=== PATIENT | male | born 1960 | race Caucasian/White ===

== ENCOUNTER 2017-09-22 16:32 | Outpatient (RCR) | payer OTHER, SELFPAY ==
[2016-04-01 13:00] VITALS: BMI 50.8
[2017-09-22 17:30] LABS: International Normalized Ratio 2.5; Prothrombin Time (Protime)PT. 26.4 SECONDS (11.7-14.9)
[2017-09-22 18:39] LABS: Amphetamine Urine VISTA NEGATIVE (<1000 ng/mL); Barbiturate Urine VISTA NEGATIVE (< 200 ng/mL); Benzodiazepine Urine VISTA NEGATIVE (< 200 ng/mL); Cocaine Urine VISTA NEGATIVE (< 300 ng/mL); Ecstacy Urine VISTA NEGATIVE (< 500 ng/mL); Methadone Urine VISTA NEGATIVE (< 300 ng/mL); PCP Urine VISTA NEGATIVE (< 25 ng/mL); THC Urine VISTA NEGATIVE (< 50 ng/mL); Vista UDS pH Range 6
== END 2017-09-22 17:00 | disposition home or self-care (01) ==
LOC: MTLAB 16:32
PROVIDERS: Family Provider Family Medicine; PCP Family Medicine; Visit Provider Internal Medicine Cardiovascular Disease
DX: Z95.2 Presence of prosthetic heart valve (principal); F11.20 Opioid dependence, uncomplicated
CPT/HCPCS: 36415; 80307; 85610

== ENCOUNTER 2017-10-18 16:57 | Outpatient (RCR) | payer OTHER, SELFPAY ==
[2016-04-01 13:00] VITALS: BMI 50.8
== END 2017-10-19 23:59 ==
LOC: NS 16:57
PROVIDERS: Family Provider Family Medicine; PCP Family Medicine; Visit Provider Physician Assistant
DX: Z68.42 Body mass index [BMI] 45.0-49.9, adult (principal); Z71.3 Dietary counseling and surveillance
CPT/HCPCS: 97803

== ENCOUNTER 2017-11-14 16:30 | Outpatient (RCR) | payer OTHER, SELFPAY ==
[2016-04-01 13:00] VITALS: BMI 50.8
[2017-07-22 12:04] VITALS: BMI 45.8
[2017-07-25 10:55] VITALS: BP 104/79
== END 2017-11-14 16:31 ==
LOC: NS 16:30
PROVIDERS: Family Provider Family Medicine; PCP Family Medicine; Visit Provider Physician Assistant
DX: Z68.42 Body mass index [BMI] 45.0-49.9, adult (principal); Z71.3 Dietary counseling and surveillance
CPT/HCPCS: 97803

== ENCOUNTER 2017-11-30 11:08 | Inpatient (IN) | payer OTHER, SELFPAY ==
[2016-04-01 13:00] VITALS: BMI 50.8
[2017-11-18 11:36] VITALS: BP 154/73; PULSE 70; RESP 16; TEMP 37.2; O2SAT 99; BMI 46.3
[2017-11-18 12:21] LABS: Anion Gap 7 (5-15); BUN 15 mg/dL (7-18); BUN/Creat Ratio 19.9 RATIO (10-20); Calcium,Total 9.1 mg/dL (8.5-10.1); Chloride 105 mmol/L (98-107); Creatinine, Serum 0.75 mg/dL (0.70-1.30); EST Glomerular Filtration Rate 114 mL/min (>60); Est Glom Filt Rate - Afr Amer 138 mL/min (>60); Estimated Creatinine Clearance 108.67 ml/min; Glucose 99 mg/dL (74-106); Potassium 4.2 mmol/L (3.5-5.1); Sodium Level 140 mmol/L (136-145)
[2017-11-18 12:23] LABS: Absolute Lymphocyte Count 1.15 X10^3/ul (0.83-4.51); Absolute Neutrophil Count 4.8 X10^3/uL (2.0-7.7); Basophil# 0.04 X10^3/uL; Basophil% 0.6 % (0-1); Eosinophil# 0.11 X10^3/uL; Eosinophils% 1.6 % (0-5); Hematocrit 47.4 % (40-54); Hemoglobin 15.1 g/dl (13.0-16.5); Lymphocyte # 1.15 X10^3/ul (4.0); Lymphocyte % 17.2 % (19-41); Mean Corp Hgb Conc 31.9 g/gl (32-36); Mean Corpuscular Hgb 28.2 pg (27.0-32.0); Mean Corpuscular Volume 88.4 fL (80-94); Mean Platelet Vol. 9.6 fl (6.2-12.0); Monocyte# 0.53 X10^3/uL; Monocyte% 7.9 % (0-10); Neutrophil # 4.83 X10^3/uL (2.7-7.7); Neutrophil % 72.6 % (47-70); Platelet Count 294 K/mm3 (150-450); RBC Distribution Width CV 14.7 % (11.6-14.6); RBC Distribution Width SD 47.8 fl (35.1-43.9); Red Blood Count 5.36 M/mm3 (4.6-6.2); White Blood Count 6.7 K/mm3 (4.4-11.0)
[2017-11-18 12:54] LABS: POSITIVE COUNT NO; POSITIVE DIFFERENTIAL NO; POSITIVE MORPHOLOGY NO
--- NOTE | 2017-11-18 15:13 | HP.PCM_ITS ---
History and Physical DATE OF SERVICE: 11/30/2017 SCHEDULED PROCEDURE: Revision left hip acetabular cup HISTORY OF PRESENT ILLNESS: This is a 57-year-old male who is been having ongoing pain for the past 8 months in the left hip. Patient had a left total hip replacement in 1989 in [facility] with a revision in 2000. Patient has to ambulate with a cane due to his left hip pain. He does complain of left groin pain. He has difficult time with activities of daily living including housework, shopping, leisure activities such as traveling. Pain is increased with going up and down stairs, walking any amount of distance, sitting for extended periods of time, and driving. Patient states pain relief is only present when he is nonweightbearing on the left lower extremity. He has tried conservative measures consisting of rest, elevation with no relief in symptoms. He has tried home exercises with no relief in symptoms. Patient has been on oral medications consisting of hydrocodone at night to help him sleep. Patient has been compliant with weight loss and it showed steady low weight loss prior to his acute aseptic loosening on the right hip which required revision surgery. Patient is currently 3-4 months from that procedure. Patient has a medical history pertinent for heart valve replacement in 1999 and which he takes Coumadin. 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 Martin and will stop the Coumadin prior to surgery. Is also obtained surgical clearance from his primary care physician Dr. Peoples. Patient currently denies any chest pain, shortness area after discussion with Dr. Rutledge, the patient would like to proceed with a revision left hip acetabular cup. REVIEW OF SYSTEMS: ROS: Const: Denies anorexia, change in appetite, fever, hard of hearing, vision problems and weight change. CV: Denies chest pain, heart murmur, irregular heartbeat and peripheral vascular disease. Resp: Reports sleep apnea, but denies asthma, cough, pneumonia, SOB, tuberculosis and wheezing. GI: Denies constipation, diarrhea, difficulty swallowing, heartburn, nausea, bloody stools and vomiting. : . (F Genital Sx) Urinary: denies incontinence. Musculo: Denies leg swelling, limp, trouble walking and weakness. Skin: Denies Raynaud's, history of shingles and tattoo. Neuro: Denies ambulatory dysfunction, dizziness, numbness/tingling and tremor. Psych: Denies anxiety, depression, insomnia, mental illness and stress. Aiden/Lymph: Reports bleeding/bruising tendency, but denies anemia and past transfusion. Reviewed, no changes. PAST MEDICAL HISTORY: Advance Care Plan: No Advance Directives Effective Date: 03/17/2017 PMH: Medical Problems: Hypercholesterolemia, Pituitary Tumor, Brain Bleed, Aortic Replacement Accidents: Fracture - (03/05/2010) RIGHT MIDDLE FINGER LT Shoulder Dislocation - (06/18/2017) FELL Surgical Hx: Heart Valve Replacement - (1999) [facility] Hip Replacement Lt - (1989) [facility] Revision Left Hip Replacement - (1999) [facility] RT THR - (12/22/2011) MSK @ [facility] Knee Arthroscopy LT - 1989 RT THR Revison W/ORIF - (07/22/2017) SAW @ [facility] Anesthesia Complications: Combative Assistive Devices: Glasses - READING, Walker, Cane Reviewed and updated. SOCIAL HISTORY: SH: Marital: .Occupation: Disabled.Work Status: Disabled.Hand Dominance: Right-handed. Personal Habits: Cigarette Use: Former.Alcohol: Denies use.Drug Use: Denies Use.Enjoy Exercising: Never Exercises. Reviewed, no changes. VITALS: Ht: 69 Wt: 314lb Wt k.430 BMI: 46.4 BP: 128/82 Pulse: 68 Resp: 16 T: 98.5 T: 36.9C ALLERGIES: No Known Drug Allergy MEDICATIONS: Crestor 20 mg 1 tab PO daily, Metoprolol Tartrate 25 mg 1 PO qdaily, Coumadin 5 mg 2 tabs PO once daily, Cabergoline 0.5 mg 1 tab PO twice weekly, Hydrocodone- Acetaminophen 5-325 mg take 1 tablet by mouth every 6 hours as needed PRE-OP EXAM: General appearance:NORMAL Other: Eyes: Conjunctivae and lids: NORMAL Pupils: ERR Ears, Nose, Mouth, and Throat: NORMAL Other: Inspection of lips, teeth and gums: NORMAL Other: Neck: Examination of neck: no masses noted. Respiratory: Assessment of respiratory effort: NORMAL Other: Ausculation of lungs: clear to ausculation no wheeses, ronchi or rales. Cardiovascular: Ausculation of heart: regular rate and rhythem, no mummurs, gallops or rubs. Exam of carotid arteries: NORMAL Other: Gastrointestinal: Exam of abdomen: soft, nontender, nondistended bowel sounds present. Lymphatic: Palpation of nodes in neck: NORMAL Other: Palpation of nodes in Axillae: NORMAL Other: Neurological: see below Psychiatric: Orientation to time, place and person: NORMAL Other: Mood and affect: NORMAL Other: PHYSICAL EXAMINATION: Patient walks with an antalgic gait. Right hip has well-healed incision with no signs of infection. Left hip is cool to touch without erythema. He has increased pain when he is standing or trying to walk. Previous incisions are without erythema or signs of infection. Sensations intact light touch. IMAGING STUDIES: 1. X-rays were obtained at [facility] and sports medicine [place] on October 21, 2017 of bilateral hips which reveals a stable well-placed right total hip replacement with healing greater trochanteric fracture. The left hip replacement shows lucency around the acetabular component. Femoral component appears well fixed. There is a previous trochanteric plate. There is asymmetric polyethylene wear. IMPRESSION: 1. Painful left total hip arthroplasty with loosening of the acetabular cup 2. Presence of revision right total hip arthroplasty 3. Previous heart valve replacement in 1999 currently on Coumadin 4. Aortic valve replacement 2012 5. Previous pituitary tumor 2016 with previous brain bleed 6. Hypercholesterolemia PLAN: Dr. Rutledge did discuss and review with the patient all treatment options including surgical versus nonsurgical. Patient wishes to proceed with above- stated procedure. Potential risks, benefits, and complications of this procedure were discussed in detail including but not limited to , infection , nerve and blood vessel damage, persistent pain, numbness, tingling, paresthesias, blood clot, pulmonary embolism, and requirement for further surgery. The patient expressed full understanding has no further questions for the doctor. Patient does agree to proceed with the above-stated procedure and has signed the surgery consent form. Patient has been instructed to stop his Coumadin prior to surgery per cardiology recommendations. ___ I have re-examined the patient. There are no clinical changes since date of exam. ___ See progress notes for changes. ___ Dictated on admission Date: Time: Signature:
--- NOTE | 2017-11-24 16:02 | CASEMGMT ---
[facility] called and spoke with patient's Bridger regarding discharge needs after upcoming surgery. Patient's states that patient just had surgery in July and has all his DME needs met at this time. Patient plans to have outpatient therapy at [facility]. [facility] will follow up with patient after surgery and will assist with discharge needs.
[2017-11-30] VITALS (9 sets, daily range): BP systolic 97–119; BP diastolic 46–81; PULSE 66–108; RESP 16–18; TEMP 35.8–36.8; O2SAT 95–100; BMI 46.3
[2017-11-30] MEDS: Acetaminophen 500 MG Tablet 1000 MG PO ×2 (11:43→22:54)
[2017-11-30] MEDS: Celecoxib 200 MG Capsule 400 MG PO (11:43)
[2017-11-30] MEDS: oxyCODONE HCl Cr 10 MG Tablet PO (11:44)
--- NOTE | 2017-11-30 13:45 | RAD_ITS ---
STUDY: X-RAY - PELVIS AND LEFT HIP REASON FOR EXAM: Male, 57 years old. Intraoperative hardware TECHNIQUE: 4 fluoroscopic views of the left hip and pelvis submitted. COMPARISON: 07/22/2017. FINDINGS: A total of 23.1 seconds of fluoroscopy, the cumulative dose of 8.43 mGy utilized. Left hip hardware in place. Good alignment. See procedural note. RAD/Hip 1 view with Pelvis IMPRESSION: Left hip prosthesis in place. No fracture. Electronically Signed: Robel Davies DO at 22:17 EDT , Service support ,
[2017-11-30] MEDS: Heparin 10,000 UNITS/10 ML Vial 10000 UNITS (14:40)
--- NOTE | 2017-11-30 18:32 | OP.PCM_ITS ---
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, osteolysis Surgery/Procedure Performed:: Revision left total hip replacement both components Description of Surgical Findings:: Stable hip with equal leg lengths chrome plater helper: Hi Garcia chrome plater helper: Howard Jarvis Type of Anesthesia:: General Anesthesiologist: Luis Erickson Special Medications: 3 g Ancef, 2 g TXA in the wound at completion of procedure for 1 minute lavage, 10 mg Decadron, joint cocktail (5 mg Duramorph, 30 mL of 0.5% Ropivicaine, 1000 units of epinephrine, 30 mg of Toradol), 1 g Ancef after 2-1/2 hours incision time Drains: hemoVAC drain Estimated Blood Loss (mL): 1200 Fluids Replaced: 1500 mL crystalloid Description of Procedure: Components used: 1. Biomet G7 60 mm acetabular shell, G with 2 screws 2. Biomet G7 10? acetabular liner with E1 antioxidant, 3. Biolox delta 40 mm ceramic head 4. Biolox +6 mm femoral neck sleeve Brief history operative indications: 57 yo m who failed conservative measures for their left hip pain status post hip replacement. X-rays were consistent with asymmetric polyethylene wear. Revision total hip replacement was discussed with the patient with risks and benefits including but not limited to blood loss, DVTs, PEs, neurovascular damage, dislocation, general risks of anesthesia including loss of life. Patient demonstrated an understanding medical clearance is obtained the patient was consented for surgery. Procedure: On the date of procedure the patient's L hip was marked in the preoperative area. Patient was then taken back to the operating room where anesthesia assumed control of the C-spine and airway and administered anesthetic. Patient was transferred to the operating table and placed in the supine position. The hips were placed at the break of the bed and a sacral bump was placed. The l lower extremity was then prepped out in a sterile fashion using chlorhexidine while the surgeon scrubbed. The PA was vital in the positioning of the patient. Upon reentering the room the L lower extremity was draped in the standard orthopedic fashion and the incision was marked. A timeout was called and everyone agreed upon the side, the site, the procedure be performed, antibody given, and patient's identity. At this time incision was made through skin, subcutaneous tissue, and fat down to fascia. The fascia was then incised and the TFL was retracted laterally. A retractor was placed on the lateral border of the femoral neck. Attention was directed to the inferior portion of the approach and all crossing vessels were identified and appropriately coagulated. A retractor was then placed on the medial portion of the femoral neck. The anterior capsule was then cleared of all soft tissue and a capsulotomy was made. Once he made an H type capsulotomy complete synovectomy was performed. We then excised a good portion of the capsule. At this time the hip was dislocated and a bone tamp was used to remove the femoral head. A 28 mm standard femoral head was removed. At this time we could see there was fracturing and asymmetric wear on the polyethylene component. Osteotome was used to remove the polyethylene component. Operatively patient was not able to obtain a report. The acetabular liner we had planned to replace was not always implanted. At this time we elected to remove the acetabular component and revise it. It was noted that it was significantly retroverted and the femoral component was significantly anteverted. Screws were removed and the acetabular liner was impacted back in place and the short and long acetabular osteotomes were used to remove the acetabular component. This was done while retracting the femur out of the way. Once we did this we were able to see that there was significant ostial lysis behind the cup. The cysts were debrided and the acetabulum was then reamed to 59 mm. 60 mm G7 cup was selected. 6 L of normal saline were irrigated throughout the wound under low-pressure lavage. The 60 mm cup was then impacted into place and 2 screws were placed. At this time based on patient's age we elected to proceed with a 40 mm ceramic head and a neutral liner. Liner was impacted and the ceramic head was put into place. A +6 ceramic head was trialed and gave equal leg lengths. This is likely due to the increased medialization of the cup. After assembling the components reduced and hip we noted that he was unstable anteriorly. At this time the hip was again dislocated and the femur was retracted out of the way. Acetabular liner was removed and the 2 screws were removed. Anteversion was dialed into the cup and a 10? liner was trialed with the lip anterior superior. Hip was reduced and showed adequate stability and equal leg lengths. At this time the trial liner was removed and 2 screws were placed once more. Once this was completed the degree liner was impacted in the place for have been trialed. Hip was again reduced and hip was stable at this time. 2 g of TXA were irrigated throughout the wound followed by copious amounts of normal saline. The VAC drain was placed and wound was closed using #1 Vicryl for the fascia #1 Vicryl for the deep fatty layer 2-0 Vicryl for the subcutaneous layer 3-0 Monocryl for the skin with Steri-Strips. The final components were once again checked with live fluoroscopy and were found to be satisfactory prior to closure. The wound was then copiously irrigated with normal saline once more, and hemostasis was obtained. Closure was then done using #1 Vicryl runner to close the fascia. A 2-0 vicryl interuppted sutures were used to close the subcutaneous skin. A 3-0 Monocryl and Steri-Strips were used for final skin closure. A Silverlon dressing was placed. Patient was awakened by anesthesia and transferred to the [facility]. Patient was then transferred to the PACU for recovery. Postoperative plan: Patient will begin full anticoagulation tomorrow, he is chronically on Coumadin for aortic valve replacement. Drain was placed and will remain in place for 48 hours. Patient will be on doxycycline for 1 week as we follow cultures. Patient will get in-house physical therapy and will be weight-bear as tolerated. Patient will follow up in office in 2 weeks for a wound check and x- rays. During the course of the procedure the Dr. Garica played a vital role as my hotel administrative assistant. His intimate knowledge of my steps in the procedure aided in safe and expedient completion of the procedure. He played a vital rolls in positioning particularly in obtaining the appropriate positioning of the sacral bump. He was also vital in the retraction of soft tissues during the exposure and especially the femoral work as this is a vital part of the procedure to prevent complications and fractures. He was also vital and protecting soft tissues during times of bony cuts and reaming. He was also important during reduction and dislocation of the joint and trials intraoperatively. During the course the procedure patient's BMI made exposure and many of the steps prolonged. This should be taken into consideration. For instance exposure of the joint and maintaining exposure because of soft tissues as well as manipulating the leg for reduction during the procedure took extra time because of the patient's obesity. The duration of this case was roughly 4 hours normally should take 2-1/2 hours this is attributed to the patient's size and be considered in a modifier 22 to the procedure. Grafts/Implants Used: Biomet - Complications None - Admit VTE Documentation VTE Present on Admission: No VTE Mechan Device Prophylaxis: SCD's, Thigh High GRACY Hose VTE Pharm Prophylaxis ordered?: Yes
--- NOTE | 2017-11-30 18:34 | RAD_ITS ---
STUDY: X-RAY - PELVIS AND LEFT HIP REASON FOR EXAM: Male, 57 years old. Postop hip revision TECHNIQUE: Radiological exam, hip, unilateral, with pelvis when performed; 2 or 3 views. COMPARISON: 07/22/2017. FINDINGS: There is a non-specific bowel gas pattern. Normal visualized soft tissue structures. Normal bilateral iliac wings, sacroiliac joints and visualized sacrum. Normal bilateral superior and inferior pubic rami. Normal pubic symphysis. Normal bilateral ischial tuberosities. Left hip prosthesis in place. No loosening of the hardware. No fracture. Right hip prosthesis in place as well. RAD/Hip Min 2 Views (Portable) IMPRESSION: Left hip prosthesis in place without loosening. No fracture. Electronically Signed: Robel Davies DO at 23:19 EDT , Service support ,
[2017-11-30] MEDS: Scopolamine 1mg/72hr Patch 1 PATCH TD (18:45)
--- NOTE | 2017-11-30 18:55 | EKG12_ITS ---
Test Reason : ST DEPRESSION Blood Pressure : / mmHG Vent. Rate : 098 BPM Atrial Rate : 098 BPM P-R Int : 198 ms QRS Dur : 102 ms QT Int : 370 ms P-R-T Axes : 056 033 073 degrees QTc Int : 472 ms Normal sinus rhythm Nonspecific ST and T wave abnormality Prolonged QT Abnormal ECG When compared with ECG of 18-JUL-2017 08:56, Vent. rate has increased BY 33 BPM Nonspecific T wave abnormality now evident in Lateral leads Confirmed by EDDI PADILLA ([id number]), editor publications JACKIE SANCHEZ ([id number]) on 12/05/2017 2:20:07 PM Referred By: Faisal Rutledge Confirmed By:EDDI PADILLA
[2017-11-30] MEDS: Lactated Ringers 1,000 ML 125 ML IV (19:38)
[2017-11-30] MEDS: Atorvastatin Calcium 40 MG Tablet PO (22:53)
[2017-11-30] MEDS: Doxycycline 100 MG CAPSULE PO (22:53)
[2017-11-30] MEDS: Senna/Docusate Sodium 1 Tablet 2 TABLET PO (22:53)
[2017-11-30] MEDS: Metoprolol(XL)Succ 25 MG Tablet PO (23:01)
[2017-11-30] MEDS: Cefazolin 1 GM/50 ML BAG IV (23:06)
[2017-12-01] VITALS (7 sets, daily range): BP systolic 107–139; BP diastolic 52–84; PULSE 71–88; RESP 16–18; TEMP 36.4–37.4; O2SAT 96–100
--- NOTE | 2017-12-01 00:08 | NURSING ---
Pt's home meds locked up in [facility] in envelope # [id number]. Pt was given a receipt for the same and watched me place home meds in envelope.
[2017-12-01] MEDS: Lactated Ringers 1,000 ML 125 ML IV (02:51)
[2017-12-01] MEDS: Acetaminophen 500 MG Tablet 1000 MG PO ×3 (05:14→20:59)
[2017-12-01] MEDS: oxyCODONE 5 MG Tablet PO (05:14)
[2017-12-01] MEDS: Cefazolin 1 GM/50 ML BAG IV (05:15)
[2017-12-01 06:15] LABS: Hematocrit 39.4 % (40-54); Hemoglobin 12.3 g/dl (13.0-16.5); Mean Corp Hgb Conc 31.2 g/gl (32-36); Mean Corpuscular Hgb 28.7 pg (27.0-32.0); Mean Corpuscular Volume 91.8 fL (80-94); Mean Platelet Vol. 10.1 fl (6.2-12.0); Platelet Count 217 K/mm3 (150-450); RBC Distribution Width CV 14.9 % (11.6-14.6); RBC Distribution Width SD 48.5 fl (35.1-43.9); Red Blood Count 4.29 M/mm3 (4.6-6.2); White Blood Count 13.4 K/mm3 (4.4-11.0)
[2017-12-01 06:18] LABS: Anion Gap 9 (5-15); BUN 17 mg/dL (7-18); BUN/Creat Ratio 19.1 RATIO (10-20); Calcium,Total 8.2 mg/dL (8.5-10.1); Chloride 108 mmol/L (98-107); Creatinine, Serum 0.89 mg/dL (0.70-1.30); EST Glomerular Filtration Rate 94 mL/min (>60); Est Glom Filt Rate - Afr Amer 113 mL/min (>60); Estimated Creatinine Clearance 91.57 ml/min; Glucose 167 mg/dL (74-106); Potassium 4.9 mmol/L (3.5-5.1); Sodium Level 138 mmol/L (136-145)
[2017-12-01 06:22] LABS: Scan Indicated on CBC? Y/N NO
[2017-12-01] MEDS: Folic Acid 1 MG Tablet PO ×2 (07:43→18:07)
[2017-12-01] MEDS: Ferrous Sulfate 325 MG Tablet PO ×2 (07:43→18:07)
[2017-12-01] MEDS: Doxycycline 100 MG CAPSULE PO ×2 (10:06→20:56)
[2017-12-01] MEDS: Senna/Docusate Sodium 1 Tablet 2 TABLET PO ×2 (10:06→20:57)
[2017-12-01] MEDS: Famotidine 20 MG Tablet PO (10:06)
--- NOTE | 2017-12-01 12:31 | PN.ORTHO_ITS ---
Subjective: The patient was sitting in bedside chair upon examination. Patient denies any chest pain, shortness of breath, dizziness, lightheadedness, nausea or vomiting , or calf pain. Pain is controlled on medications. No adverse overnight events. Overall patient is doing very well. Patient does have a Hemovac drain placed in left hip. Patient does wish to go home when medically ready. Patient does have medical history pertinent for heart valve replacement in which he takes Coumadin. He is managed by Dr. Martin. The Coumadin has been restarted and will continue to monitor his INR. Patient will follow-up with Dr. Martin with regards to management of Coumadin. Objective: 1. S/P revision left total hip arthroplasty POD #1 2. Continue Pain Medications: Tylenol and OxyIR 3. DVT Prophylaxis: Patient has been placed back on Coumadin per Dr. Martin's recommendations 4. PT/OT: Weightbearing as tolerated 5. H & H: 12.3/39.4, asymptomatic 6. Leukocytosis: Currently 13.4, afebrile. Patient did receive Decadron intraoperatively 7. Encouraged Incentive Spirometry 8. Hemovac drain: Plan will be for removal tomorrow. 9. Continue antibiotics while following cultures: Currently pending 10. Disposition: Plan is for possible discharge home tomorrow with removal of Hemovac drain. - Physical Exam General: Alert, Oriented x3, Cooperative, No apparent distress Vital Signs Temp Pulse Resp BP Pulse Ox 98.9 F 71 16 127/52 H 100 12/01/17 10:03 12/01/17 10:03 12/01/17 10:03 12/01/17 10:03 12/01/17 10:03 Oxygen Delivery Method Room Air Weight: 142.428 kg Body Mass Index (BMI) 46.3 Intake and Output for Last 24 Hours 11/29/17 11/30/17 12/01/17 23:59 23:59 23:59 Intake Total 1000 / 1000 2159 / 2159 Output Total 1400 / 1400 Balance 1000 / 1000 759 / 759 Microbiology Past 72 Hours 11/30/17 14:59 Gram Stain - Final Tissue - Other Wound Culture - Preliminary No growth-Final to follow 11/30/17 14:59 Gram Stain - Final Tissue - Other Wound Culture - Preliminary No growth-Final to follow 11/30/17 14:59 Gram Stain - Final Tissue - Other Wound Culture - Preliminary No growth-Final to follow Laboratory Tests Past 24 Hrs 12/01/17 12/01/17 05:46 05:46 WBC 13.4 H RBC 4.29 L Hgb 12.3 L Hct 39.4 L MCV 91.8 MCH 28.7 MCHC 31.2 L RDW 14.9 H RDW Differential 48.5 H Plt Count 217 MPV 10.1 Sodium 138 Potassium 4.9 Chloride 108 H Carbon Dioxide 21.0 Anion Gap 9 BUN 17 Creatinine 0.89 Estim Creat Clear Calc 91.57 Est GFR (MDRD) Af Amer 113 Est GFR (MDRD) Non-Af 94 BUN/Creatinine Ratio 19.1 Glucose 167 H Calcium 8.2 L
--- NOTE | 2017-12-01 12:32 | PCM.DC.THR ---
Discharge Diet: No Restrictions Discharge Activity: May Not Drive - while taking narcotic pain medications. May shower in (days): 1 - Turned dressing away from water Ice area for (Minutes): 20 Weight Bearing Status: Weight bearing as tolerated Additional Activity Instructions:: Wear elastic stockings for 2 weeks. DO NOT use alcohol with narcotic pain medication. DO NOT make important decisions while taking narcotic medication. If you have problems with taking your medication (rash, itching, nausea, etc.) call the office at once. Call your doctor if your incision/area has: Increased Pain/ Swelling, Increased Redness, Foul Smelling Discharge Call your doctor if you observe: Fever of 101 or Higher Remove Dressing in (days):: 3 - Okay to remove dressing on December 05, 2017 Additional Instructions: Follow [facility] postop instructions Allergies/Adverse Reactions: Allergies No Known Allergies Allergy (Verified 11/18/17 11:14) Medications to take at Discharge Metoprolol(XL)Succ [Toprol Xl (Beta Denis)] 25 mg PO QHS 04/07/15 Rosuvastatin Calcium [Crestor] 20 mg PO QHS 04/07/15 Warfarin Sodium [Coumadin] 10 mg PO QHS 04/07/15 Cabergoline 0.5 mg PO MOTH 07/18/17 Cholecalciferol (Vitamin D3) [Vitamin D3] 5,000 unit PO DAILY 11/30/17 Acetaminophen [Tylenol] 1,000 mg PO Q8 #90 tab 12/02/17 Doxycycline 100 mg PO BID #12 cap 12/02/17 Oxycodone [Oxyir] 5 - 10 mg PO Q4H PRN PRN 7 Days #80 tablet 12/02/17 Senna/Docusate Sodium [Senokot-S] 2 tab PO BID #20 tab 12/02/17 The following prescriptions were given: Oxycodone [Oxyir] 5 - 10 mg PO Q4H PRN PRN 7 Days #80 tablet PRN Reason: Mod-Severe Pain (4-10) Acetaminophen [Tylenol] 1,000 mg PO Q8 #90 tab Doxycycline 100 mg PO BID #12 cap Senna/Docusate Sodium [Senokot-S] 2 tab PO BID #20 tab Primary Care Physician: Emmett Peoples MD [Primary Care Provider] - Please Follow Up With: [facility] When: 12/05/17 @ 1:00 with elenita Please Follow Up With: Howard Jarvis PA-C When: 12/14/17 @ 8:45 am Please Follow Up With: Wilfrido Martin MD When: Follow-up in 3-4 days with regards to Coumadin and INR levels
[2017-12-01 13:56] LABS: International Normalized Ratio 1.2; Prothrombin Time (Protime)PT. 15.6 SECONDS (11.7-14.9)
--- NOTE | 2017-12-01 15:52 | CASEMGMT ---
RN OLVIN Face to Face with patient for initial transition planning/care coordination assessment. RN CM introduced self and role at [facility]. Patient sitting in chair, alert and oriented, at bedside. Patient willing to participate in assessment and is able to answer all questions appropriately. Care providers, pharmacy, and demographics verified. Patient wishes to discharge home and is setup with [facility] for outpatient therapy, will be providing transportation. Patient has tub bench, hip kit, and walker at home. Patient states he has no further needs or concerns at this time. CM to follow for discharge planning needs that may arise. Disposition Plan: Patient to discharge home with outpatient therapy, family support, and follow-up plans in place.
[2017-12-01] MEDS: CABERGOLINE 0.5 MG TABLET PO (20:55)
[2017-12-01] MEDS: Atorvastatin Calcium 40 MG Tablet PO (20:56)
[2017-12-01] MEDS: Metoprolol(XL)Succ 25 MG Tablet PO (20:58)
[2017-12-02 05:59] VITALS: BP 110/67; PULSE 80; RESP 16; TEMP 36.3; O2SAT 99
[2017-12-02] MEDS: Acetaminophen 500 MG Tablet 1000 MG PO (06:04)
--- NOTE | 2017-12-02 06:59 | PCM.PN.ORT ---
Subjective: The patient was sitting in bed upon examination. Patient denies any chest pain, shortness of breath, dizziness, lightheadedness, nausea or vomiting, or calf pain. Pain is controlled on medications. No adverse overnight events. Patient states overnight the Hemovac drain was accidentally pulled when it got caught on the bed. Patient states overall he feels better than prior to surgery. Pain is been controlled. He does wish to go home today. Patient will follow with Dr. Cesar with regards to Coumadin and INR check. Objective: Vital signs stable and afebrile. Patient is able to plantarflex and dorsiflex actively. Sensation is intact to light touch to saphenous, sural, superficial and deep peroneal, and tibial distribution. Dressing is clean dry and intact. Hemovac drain was accidentally pulled by patient when got caught on bed. Steri-Strip was placed today over the incision. OpSite was placed with 4 x 4. Ecchymosis is appreciated in skinfold: Patient was instructed to place gauze pad or washcloth in between skin fold when at home. Patient voiced understanding Negative Homans bilaterally, negative signs and symptoms of DVT. - Physical Exam General: Alert, Oriented x3, Cooperative, No apparent distress Vital Signs Temp Pulse Resp BP Pulse Ox 97.3 F L 80 16 110/67 99 12/02/17 05:59 12/02/17 05:59 12/02/17 05:59 12/02/17 05:59 12/02/17 05:59 Oxygen Delivery Method Room Air Weight: 142.428 kg Body Mass Index (BMI) 46.3 Intake and Output for Last 24 Hours 11/30/17 12/01/17 12/02/17 23:59 23:59 23:59 Intake Total 1000 / 1000 3356 / 3356 Output Total 3150 / 3150 Balance 1000 / 1000 206 / 206 -15 / -15 Microbiology Past 72 Hours 11/30/17 14:59 Gram Stain - Final Tissue - Other Wound Culture - Preliminary No growth-Final to follow 11/30/17 14:59 Gram Stain - Final Tissue - Other Wound Culture - Preliminary No growth-Final to follow 11/30/17 14:59 Gram Stain - Final Tissue - Other Wound Culture - Preliminary No growth-Final to follow Laboratory Tests Past 24 Hrs 12/01/17 13:35 PT 15.6 H INR 1.2 Assessment/Plan 1. S/P revision left total hip arthroplasty POD #2 2. Continue Pain Medications: Tylenol and OxyIR 3. DVT Prophylaxis: Patient has been placed back on Coumadin per Dr. Martin's recommendation 4. PT/OT: Weightbearing as tolerated 5. H & H: Labs not available, asymptomatic 6. Encouraged Incentive Spirometry 7. Dressing and Hemovac drain: Area was Steri-Stripped with OpSite and 4 x 4 placed. Patient will remove dressing on postoperative day #5. 8. Continue antibiotics while following cultures: Currently no growth 9. Disposition: Plan will be for discharge home today. Patient is orthopedically stable. Patient will follow-up per postop instructions. Prescriptions will be E scribed to [facility]. Patient instructed to place washcloth in between skin folds to prevent maceration. Patient voiced understanding and agreement.
--- NOTE | 2017-12-02 07:04 | PN.ORTHO_ITS ---
Subjective: The patient was sitting in bed upon examination. Patient denies any chest pain , shortness of breath, dizziness, lightheadedness, nausea or vomiting, or calf pain. Pain is controlled on medications. No adverse overnight events. Patient states overnight the Hemovac drain was accidentally pulled when it got caught on the bed. Patient states overall he feels better than prior to surgery. Pain is been controlled. He does wish to go home today. Patient will follow with Dr. Cesar with regards to Coumadin and INR check. Objective: Vital signs stable and afebrile. Patient is able to plantarflex and dorsiflex actively. Sensation is intact to light touch to saphenous, sural, superficial and deep peroneal, and tibial distribution. Dressing is clean dry and intact. Hemovac drain was accidentally pulled by patient when got caught on bed. Steri- Strip was placed today over the incision. OpSite was placed with 4 x 4. Ecchymosis is appreciated in skinfold: Patient was instructed to place gauze pad or washcloth in between skin fold when at home. Patient voiced understanding Negative Homans bilaterally, negative signs and symptoms of DVT. - Physical Exam General: Alert, Oriented x3, Cooperative, No apparent distress Vital Signs Temp Pulse Resp BP Pulse Ox 97.3 F L 80 16 110/67 99 12/02/17 05:59 12/02/17 05:59 12/02/17 05:59 12/02/17 05:59 12/02/17 05:59 Oxygen Delivery Method Room Air Weight: 142.428 kg Body Mass Index (BMI) 46.3 Intake and Output for Last 24 Hours 11/30/17 12/01/17 12/02/17 23:59 23:59 23:59 Intake Total 1000 / 1000 3356 / 3356 Output Total 3150 / 3150 Balance 1000 / 1000 206 / 206 -15 / -15 Microbiology Past 72 Hours 11/30/17 14:59 Gram Stain - Final Tissue - Other Wound Culture - Preliminary No growth-Final to follow 11/30/17 14:59 Gram Stain - Final Tissue - Other Wound Culture - Preliminary No growth-Final to follow 11/30/17 14:59 Gram Stain - Final Tissue - Other Wound Culture - Preliminary No growth-Final to follow Laboratory Tests Past 24 Hrs 12/01/17 13:35 PT 15.6 H INR 1.2 Assessment/Plan 1. S/P revision left total hip arthroplasty POD #2 2. Continue Pain Medications: Tylenol and OxyIR 3. DVT Prophylaxis: Patient has been placed back on Coumadin per Dr. Martin's recommendation 4. PT/OT: Weightbearing as tolerated 5. H & H: Labs not available, asymptomatic 6. Encouraged Incentive Spirometry 7. Dressing and Hemovac drain: Area was Steri-Stripped with OpSite and 4 x 4 placed. Patient will remove dressing on postoperative day #5. 8. Continue antibiotics while following cultures: Currently no growth 9. Disposition: Plan will be for discharge home today. Patient is orthopedically stable. Patient will follow-up per postop instructions. Prescriptions will be E scribed to [facility]. Patient instructed to place washcloth in between skin folds to prevent maceration. Patient voiced understanding and agreement.
[2017-12-02] MEDS: Folic Acid 1 MG Tablet PO (08:03)
[2017-12-02] MEDS: Ferrous Sulfate 325 MG Tablet PO (08:04)
[2017-12-02] MEDS: Doxycycline 100 MG CAPSULE PO (08:05)
[2017-12-02] MEDS: Famotidine 20 MG Tablet PO (08:05)
[2017-12-02] MEDS: Senna/Docusate Sodium 1 Tablet 2 TABLET PO (08:06)
[2017-12-02 08:15] VITALS: BP 118/45; PULSE 79; RESP 18; TEMP 37; O2SAT 100
[2017-12-02 08:44] LABS: Hematocrit 33.2 % (40-54); Hemoglobin 10.4 g/dl (13.0-16.5); Mean Corp Hgb Conc 31.3 g/gl (32-36); Mean Corpuscular Hgb 28.7 pg (27.0-32.0); Mean Corpuscular Volume 91.7 fL (80-94); Mean Platelet Vol. 9.4 fl (6.2-12.0); Platelet Count 212 K/mm3 (150-450); RBC Distribution Width CV 15.1 % (11.6-14.6); RBC Distribution Width SD 49.4 fl (35.1-43.9); Red Blood Count 3.62 M/mm3 (4.6-6.2); White Blood Count 11.5 K/mm3 (4.4-11.0)
[2017-12-02 08:46] LABS: Scan Indicated on CBC? Y/N NO
[2017-12-02] MEDS: oxyCODONE 5 MG Tablet PO (09:59)
== END 2017-12-02 10:09 | disposition home or self-care (01) | DRG 467 ==
LOC: ACINP 11:10 → MS3 13:07
PROVIDERS: Physician Assistant Surgical; Admitting Provider Specialist; Family Provider Family Medicine; PCP Family Medicine; Visit Provider Specialist
PROC: 0SRB04A Replacement of Left Hip Joint with Ceramic on Polyethylene Synthetic Substitute, Uncemented, Open Approach (ICD-10-PCS; principal; 2017-11-30 13:20)
DX: T84.061A Wear of articular bearing surface of internal prosthetic left hip joint, initial encounter (principal); Z68.42 Body mass index [BMI] 45.0-49.9, adult; T84.051A Periprosthetic osteolysis of internal prosthetic left hip joint, initial encounter; Z96.643 Presence of artificial hip joint, bilateral; Z79.01 Long term (current) use of anticoagulants; Z95.2 Presence of prosthetic heart valve; E78.00 Pure hypercholesterolemia, unspecified; E66.9 Obesity, unspecified
CPT/HCPCS: 36415; 36416; 73501; 73502; 76000; 80048; 85025; 85027; 85610; 87015; 87070; 87075; 87081; 87102; 87116; 87205; 87206; 93005; 97110; 97116; 97162; 97166; 97530; 97535; 99251; J7120; G0463; J2405

== ENCOUNTER 2017-12-05 13:46 | Outpatient (RCR) | payer OTHER, SELFPAY ==
[2016-04-01 13:00] VITALS: BMI 50.8
[2017-11-28 10:26] LABS: International Normalized Ratio 2.4; Prothrombin Time (Protime)PT. 26.4 SECONDS (11.7-14.9)
[2017-11-29 14:47] LABS: International Normalized Ratio 1.4; Prothrombin Time (Protime)PT. 16.9 SECONDS (11.7-14.9)
[2017-12-05 15:51] LABS: International Normalized Ratio 2.5
== END 2017-12-05 15:00 | disposition home or self-care (01) ==
LOC: LAB 13:46
PROVIDERS: Family Provider Family Medicine; PCP Family Medicine; Visit Provider Internal Medicine Cardiovascular Disease
DX: Z95.2 Presence of prosthetic heart valve (principal); Z79.01 Long term (current) use of anticoagulants
CPT/HCPCS: 36415; 85610

== ENCOUNTER → 2018-01-10 14:48 | Outpatient (CLI) | payer OTHER, SELFPAY ==
[2016-04-01 13:00] VITALS: BMI 50.8
--- NOTE | 2018-01-10 14:51 | ECHOCS_ITS ---
Reason For Study: AVR eval Procedure This was a 2D Doppler, Color Flow transthoracic echocardiogram. The study was technically difficult. Due to body habitus. Contrast injection was performed. Exam performed in department. Left Ventricle Normal LV size. Mild concentric left ventricular hypertrophy. Left ventricular systolic function is normal. The estimated ejection fraction is 65 %. Transmitral diastolic flow velocities suggest mild (stage 1) diastolic dysfunction (reversed pattern). No regional wall motion abnormalities noted. Right Ventricle Normal RV size. Normal systolic function. Atria Normal left atrium. Normal right atrium. Mitral Valve Normal mitral valve. Tricuspid Valve Normal tricuspid valve. Aortic Valve Peak aortic valve gradient 28 mmHg. Mean aortic valve gradient 14 mmHg. Stable appearing mechanical aortic valve apparatus. Pulmonic Valve Normal pulmonic valve. Great Vessels Normal aortic root. The pulmonary artery is normal size. Normal inferior vena cava. Pericardium/Pleural No pericardial effusion. Medication 22 gauge I.V. with prn adaptor inserted into right arm. Diluted definity 4.0ml given slow IV push to enhance endocardial definition. MMode/2D Measurements & Calculations LVIDd: 5.2 cm IVSd: 1.4 cm Ao root diam: 3.3 cm LVIDs: 3.5 cm LVPWd: 1.2 cm LA dimension: 3.9 cm FS: 33.6 % LAV(MOD-bp): 81.6 ml LAV(MOD-bp) Indexed: 32.3 ml/m2 LAV(MOD-sp2): 77.7 ml LAV(MOD-sp4): 74.9 ml Doppler Measurements & Calculations MV E max john: 61.6 cm/sec Lat Peak E' John: 16.2 cm/sec Med Peak E' John: 9.6 cm/sec MV A max john: 79.3 cm/sec E/E' lat: 3.8 E/E' med: 6.5 MV E/A: 0.78 Ao V2 max: 262.9 cm/sec LV V1 max: 95.9 cm/sec PA V2 max: 159.4 cm/sec Ao max P.7 mmHg LV V1 max P.7 mmHg Ao V2 mean: 173.9 cm/sec LV V1 mean P.9 mmHg Ao mean P.8 mmHg LV V1 mean: 66.5 cm/sec Ao V2 VTI: 46.6 cm LV V1 VTI: 18.8 cm TR max john: 243.3 cm/sec TR max P.7 mmHg Interpretation Summary Normal LV size. Left ventricular systolic function is normal. The estimated ejection fraction is 65 %. Mild concentric left ventricular hypertrophy. Transmitral diastolic flow velocities suggest mild (stage 1) diastolic dysfunction (reversed pattern). Mean aortic valve gradient 14 mmHg. Compared to prior study, there is no significant change. Ordering Physician: Wilfrido Martin Referring Physician: Wilfrido Martin Performed By: Cony Sumner, RDCS, RVT
== END ==
PROVIDERS: Family Provider Family Medicine; PCP Family Medicine; Visit Provider Internal Medicine Cardiovascular Disease
DX: Z95.2 Presence of prosthetic heart valve (principal)
CPT/HCPCS: 93306; Q9957; A4216; C8929

== ENCOUNTER 2018-01-11 08:22 | Outpatient (RCR) | payer OTHER, SELFPAY ==
[2016-04-01 13:00] VITALS: BMI 50.8
[2018-01-11 10:11] LABS: International Normalized Ratio 3.5
== END 2018-01-11 09:00 | disposition home or self-care (01) ==
LOC: LAB 08:22
PROVIDERS: Family Provider Family Medicine; PCP Family Medicine; Visit Provider Internal Medicine Cardiovascular Disease
DX: Z95.2 Presence of prosthetic heart valve (principal); Z79.01 Long term (current) use of anticoagulants
CPT/HCPCS: 36415; 85610

== ENCOUNTER → 2018-01-20 16:44 | Outpatient (CLI) | payer OTHER, SELFPAY ==
[2016-04-01 13:00] VITALS: BMI 50.8
--- NOTE | 2018-01-20 16:55 | MRI_ITS ---
STUDY: MRI LUMBAR SPINE WITHOUT CONTRAST REASON FOR EXAM: Male, 57 years old. Low back pain status post multiple steroid injections TECHNIQUE: Standardized fat and water weighted pulse sequences were obtained in the sagittal and axial planes. COMPARISON: None FINDINGS: T12-L1: Normal endplates. Normal disc height, hydration and minimal annular bulge. Normal bilateral facet joints. Normal central canal and bilateral lateral recesses. Normal bilateral intervertebral neural foramina. Normal lumbar lordosis. There is no substantial scoliosis. Normal conus medullaris that terminates at T12-L1 L1-2: Endplate spurring. Normal disc height, desiccation and small left foraminal disc protrusion. Normal bilateral facet joints. Normal central canal and bilateral lateral recesses. Mild left neural foraminal encroachment. L2-3: Endplate spurring. Normal disc height, desiccation and mild annular bulge with small bilateral posterolateral/foraminal disc protrusions. Normal bilateral facet joints. Normal central. Mild bilateral recess and neuroforaminal stenosis slightly more advanced on the left L3-4: Endplate spurring.. Normal disc height, desiccation and minor annular bulge with small left foraminal disc protrusion. Mild bilateral facet arthropathy.. Normal central canal. Mild bilateral recess encroachment and left neuroforaminal impingement. L4-5: Endplate spurring.. Normal disc height, desiccation and tiny right posterolateral/foraminal disc protrusion. Mild facet arthropathy and thickening of ligamenta flava. Normal central canal. Mild right lateral recess encroachment. Normal vertebral neuroforamina L5-S1: Mild endplate spurring. Normal disc height, desiccation and tiny broad-based right posterolateral/foraminal disc protrusion.. Mild facet arthropathy.. Normal central canal. Mild right lateral recess and neuroforaminal encroachment.. Normal visualized sacral ala. Normal visualized paraspinous soft tissue structures. MRI/Spine Lumbar (Routine) IMPRESSION: Moderate spondylosis and multilevel spinal stenosis secondary to disc disease and bony hypertrophy. Findings as above Electronically Signed: Conner Ponce MD at 18:21 EDT , Service support ,
== END ==
PROVIDERS: Family Provider Family Medicine; PCP Family Medicine; Visit Provider Anesthesiology Pain Medicine
DX: M54.9 Dorsalgia, unspecified (principal); M79.606 Pain in leg, unspecified
CPT/HCPCS: 72148

== ENCOUNTER 2018-06-06 09:26 | Outpatient (RCR) | payer OTHER, SELFPAY ==
[2016-04-01 13:00] VITALS: BMI 50.8
[2018-06-06 12:33] LABS: Prothrombin Time (Protime)PT. 40.4 SECONDS (11.7-14.9)
[2018-06-06 12:42] LABS: International Normalized Ratio 4.1
== END 2018-06-06 11:00 | disposition home or self-care (01) ==
LOC: MTLAB 09:26
PROVIDERS: Family Provider Family Medicine; PCP Family Medicine; Visit Provider Internal Medicine Cardiovascular Disease
DX: Z95.2 Presence of prosthetic heart valve (principal); Z79.01 Long term (current) use of anticoagulants
CPT/HCPCS: 36415; 85610

== ENCOUNTER 2018-07-04 08:24 | Outpatient (RCR) | payer OTHER, SELFPAY ==
[2016-04-01 13:00] VITALS: BMI 50.8
[2018-07-04 10:36] LABS: International Normalized Ratio 1.7
== END 2018-07-04 10:00 | disposition home or self-care (01) ==
LOC: MTLAB 08:24
PROVIDERS: Family Provider Family Medicine; PCP Family Medicine; Referring Provider Internal Medicine Cardiovascular Disease; Visit Provider Internal Medicine Cardiovascular Disease
DX: Z95.2 Presence of prosthetic heart valve (principal); Z79.01 Long term (current) use of anticoagulants
CPT/HCPCS: 36415; 85610

== ENCOUNTER → 2018-07-11 07:11 | Outpatient (CLI) | payer OTHER, SELFPAY ==
[2016-04-01 13:00] VITALS: BMI 50.8
[2018-07-11 10:33] LABS: International Normalized Ratio 2.8; Prothrombin Time (Protime)PT. 29.8 SECONDS (11.7-14.9)
[2018-07-11 10:49] LABS: AST(SGOT) 27 U/L (15-37); Alanine Aminotransfer ALT/SGPT 40 U/L (16-61); Albumin, Serum 3.5 g/dL (3.2-5.0); Alkaline Phosphatase 86 U/L (45-117); Bilirubin, Direct 0.11 mg/dL (0.00-0.30); Cholesterol 134 mg/dL (200); Globulin 3.8 g/dL (2.2-4.2); High Density Lipoprotein 35 mg/dL; Protein, Total 7.3 g/dL (6.4-8.2); Triglycerides 149 mg/dL; Very Low Density Lipoprotein 30 mg/dL (5-40)
== END ==
PROVIDERS: Family Provider Family Medicine; PCP Family Medicine; Referring Provider Nurse Practitioner Family; Visit Provider Nurse Practitioner Family
DX: E78.00 Pure hypercholesterolemia, unspecified (principal); Z95.2 Presence of prosthetic heart valve; Z79.01 Long term (current) use of anticoagulants
CPT/HCPCS: 36415; 80061; 80076; 85610

== ENCOUNTER 2018-09-18 08:33 | Outpatient (RCR) | payer OTHER, SELFPAY ==
[2016-04-01 13:00] VITALS: BMI 50.8
[2018-09-18 10:35] LABS: International Normalized Ratio 2.5; Prothrombin Time (Protime)PT. 27.4 SECONDS (11.7-14.9)
== END 2018-09-18 09:00 | disposition home or self-care (01) ==
LOC: MTLAB 08:33
PROVIDERS: Family Provider Family Medicine; PCP Family Medicine; Referring Provider Internal Medicine Cardiovascular Disease; Visit Provider Internal Medicine Cardiovascular Disease
DX: Z95.2 Presence of prosthetic heart valve (principal); Z79.01 Long term (current) use of anticoagulants
CPT/HCPCS: 36415; 85610

== ENCOUNTER 2019-02-02 07:29 | Outpatient (RCR) | payer OTHER, SELFPAY ==
[2016-04-01 13:00] VITALS: BMI 50.8
[2018-07-05 09:06] VITALS: BMI 48.1
[2019-01-29 07:48] VITALS: BMI 48.2
[2019-02-02 10:15] LABS: Prothrombin Time (Protime)PT. 37.2 SECONDS (11.7-14.9)
[2019-02-02 10:17] LABS: International Normalized Ratio 3.7
[2019-02-02 11:09] LABS: Anion Gap 4 (5-15); BUN 15 mg/dL (7-18); BUN/Creat Ratio 21.1 RATIO (10-20); Calcium,Total 8.9 mg/dL (8.5-10.1); Chloride 108 mmol/L (98-107); Creatinine, Serum 0.71 mg/dL (0.70-1.30); EST Glomerular Filtration Rate 121 mL/min (>60); Est Glom Filt Rate - Afr Amer 146 mL/min (>60); Glucose 110 mg/dL (74-106); Sodium Level 141 mmol/L (136-145); Thyroid Stim Hormone (TSH) 1.08 uIU/mL (0.358-3.74)
== END 2019-02-02 09:00 | disposition home or self-care (01) ==
LOC: MTLAB 07:29
PROVIDERS: Family Provider Family Medicine; PCP Family Medicine; Referring Provider Internal Medicine Cardiovascular Disease; Visit Provider Internal Medicine Cardiovascular Disease
DX: I10 Essential (primary) hypertension (principal); Z95.2 Presence of prosthetic heart valve; Z79.01 Long term (current) use of anticoagulants
CPT/HCPCS: 36415; 80048; 84443; 85610

== ENCOUNTER → 2019-05-28 14:54 | Outpatient (CLI) | payer MEDICARE, SELFPAY ==
[2016-04-01 13:00] VITALS: BMI 50.8
[2019-05-28 14:54] VITALS: BMI 50.9
--- NOTE | 2019-05-28 15:07 | RAD_ITS ---
STUDY: X-RAY - RIGHT KNEE REASON FOR EXAM: Male, 58 years old. Knee pain TECHNIQUE: 2 view(s) of the knee. COMPARISON: None. FINDINGS: There are no acute fractures or dislocations. There is a small knee joint effusion. The quadriceps and patellar tendons are normal. Small spurs from the tibial and femoral condyles. RAD/Knee 1 or 2 Views IMPRESSION: No fractures. Mild osteoarthritis. Electronically Signed: Travis Godoy MD at 6:29 EDT Tel , Service support ,
== END ==
PROVIDERS: Family Provider Family Medicine; PCP Family Medicine; Referring Provider Anesthesiology Pain Medicine; Visit Provider Anesthesiology Pain Medicine
DX: M25.561 Pain in right knee (principal)
CPT/HCPCS: 73560

== ENCOUNTER 2019-08-06 08:11 | Outpatient (RCR) | payer MEDICARE, SELFPAY ==
[2016-04-01 13:00] VITALS: BMI 50.8
[2019-02-17 08:13] VITALS: BMI 48.2
[2019-08-06 08:01] VITALS: BMI 50.9
[2019-08-06 10:33] LABS: Prothrombin Time (Protime)PT. 31.2 SECONDS (11.7-14.9)
== END 2019-08-06 18:00 | disposition home or self-care (01) ==
LOC: MTLAB 08:11
PROVIDERS: Family Provider Family Medicine; PCP Family Medicine; Referring Provider Internal Medicine Cardiovascular Disease; Visit Provider Internal Medicine Cardiovascular Disease
DX: Z79.01 Long term (current) use of anticoagulants (principal); Z95.2 Presence of prosthetic heart valve
CPT/HCPCS: 36415; 85610

== ENCOUNTER 2020-01-11 08:30 | Outpatient (RCR) | payer MEDICARE, SELFPAY ==
[2016-04-01 13:00] VITALS: BMI 50.8
[2019-08-06 08:40] VITALS: BMI 48.7
--- NOTE | 2019-12-12 10:35 | HP.PTEVAL ---
Patient's Visit Information ALIN ROMAN is a 59 year old M referred to Physical Therapy by Faisal Rutledge MD with a diagnosis of PRESENCE OF ARTIFICAL HIP JOINT BILATERAL. Date of Evaluation: 12/12/19 Physical Therapist: Otto Jack PT, Cert MDT, OCS - Visit Plan Frequency: 2x /Week Duration: 4 Weeks Plan: LFES SCORE : 33. PT INTERVENTIONS AQUATIC PT ROM BILTAERAL ,STRENGTHENING HIP/KNEE,ENDURANCE PROGAM,PROPRIOCEPTION - Subjective Subjective: This 59 y/o male presents to physical therapy with presence of ESTHER bilateral. Patient has had multiple left hip THR 1st in 1989 ,revision 2000and 2014,right THR 2010 revison and 2 other revison due to socket broke. Patient has been hospitalized several times.Most recently had last Rehab 2014. Patient has developed LBP. Patient has fifficuly with extended sitting ,standing ,lifting extended walking . Occassioanlly uses cane. Denies parathesia/tingling. Patient sleeping okay at night with sleep apnea machines. Patient condition affects QOL. SOCAIL: . VOCATION: disabliy - Pain Bilateral Back Pain Intensity (Out of 10): 4 Pain Intensity Range: 10 - Objective POSTURE: mild foward posture. GAIT: reciprocal pattern. NEURO: intact. PALAPTION: unremarkable. AROM: hip flexion 90 LEFT,RIGHT 95 degrees,abduction 20 degrees. MMT: quads/hams 4/5,hip flexion 3+/5 R ,left 4-/5,hip abd 3+/5. PROPRIOCEPTION: poor unable SLS. STAIRS: one step at time - Goals Goal 1:: Independant with Aquatic PT community based program. Goal Time Frame: 4-6 Weeks Goal 2:: Patient to ascend /descend stairs without rails. Goal Time Frame: 4-6 Weeks Goal 3:: Patient to increase hip strength 4/5 to improve functionand gait. Goal Time Frame: 4-6 Weeks Goal 4:: Patient improve LFES score by 5 points or > to improve function. Goal Time Frame: 4-6 Weeks Goal 5:: Patient improve SLS by 15-30sec ea leg . Goal Time Frame: 4-6 Weeks - Rehabilitation Potential Physical Therapy Diagnosis: This patient has bilateral THR with multiple revisions with derease hip strength impairs housework activities require extended walking and standing. Rehabilitation Potential: Good - Anticipated Interventions Patient/Client Instruction: Educate patient on: Condition, Plan of Care For the Purpose of:: To decrease pain, To increase ROM, To improve muscle performance and motor function, To improve ability to perform ADL's, To increase tolerance to activity/condition/position, To improve ability of physical actions for home/community/work/leisure, To improve health of tissue, To decrease soft tissue restriction, To increase flexibility/ROM, To improve endurance, To improve balance Therapeutic Exercise to Include: Strength training, Endurance training, Balance training, Postural training, Flexibilty training, In an aquatic setting, Active ROM For the Purpose of:: To decrease pain, To increase ROM, To improve nutrient delivery to tissue, To increase oxygenation perfusion, To improve muscle performance and motor function, To improve health of tissue, To decrease soft tissue restriction, To increase flexibility/ROM, To improve endurance, To improve balance, To improve safety with gait Thank you for the opportunity to evaluate your patient. For Medicare and Medicare HMO plans, please review the plan of care and approve it. It will need to be FAXED BACK to us at [phone] for Medicare purposes. For Medicare only, by signing this I certify the plan of care. Please let me know if there are questions or concerns regarding this plan of care. Physician Signature: Date:
--- NOTE | 2020-01-11 09:01 | HP.PTDCSUM ---
It has been my pleasure to treat ALIN ROMAN referred by Faisal Rutledge MD, with the diagnosis of PRESENCE OF ARTIFICAL HIP JOINT BILATERAL for a total of 10 visit(s). Discharge Date: 01/11/20 Please see the following information for a summary of their discharge status. Subjective: Doing much better overal..With improvement with function and ADLS' Bilateral Back Pain Intensity (Out of 10): 0 L knee Pain Intensity (Out of 10): 4 % Improvement: 70 Objective/Function: POSTURE: mild foward posture. PALAPTION: unremarkable. GAIT:reciprocal gait. MMT: quads/hams/hip flexion 4/5 ,4-/5 abd. AROM: BUE WFL Goal 1:: Independant with Aquatic PT community based program. Goal Progress: Goal Met Goal 2:: Patient to ascend /descend stairs without rails. Goal Progress: Goal Met Goal 3:: Patient to increase hip strength 4/5 to improve functionand gait. Goal Progress: Goal Met Goal 4:: Patient improve LFES score by 5 points or > to improve function. Goal Progress: Goal Met Goal 5:: Patient improve SLS by 15-30sec ea leg . Goal Progress: Goal Met Plan: D/C If there are questions or concerns regarding this patient's physical therapy, please feel free to call me at [phone]. Thank you for the referral of this patient. Sincerely, Otto Jack, PT, Cert MDT, OCS
== END 2020-01-11 19:00 | disposition home or self-care (01) ==
LOC: PT 08:30
PROVIDERS: PCP Family Medicine; Referring Provider Specialist; Visit Provider Specialist
DX: Z96.643 Presence of artificial hip joint, bilateral (principal)
CPT/HCPCS: 97113; 97162; 97530

== ENCOUNTER 2020-04-15 09:55 | Outpatient (RCR) | payer MEDICARE, SELFPAY ==
[2016-04-01 13:00] VITALS: BMI 50.8
[2020-04-15 09:42] VITALS: BMI 48.7
[2020-04-15 12:26] LABS: International Normalized Ratio 2.1
== END 2020-04-15 18:00 | disposition home or self-care (01) ==
LOC: MTLAB 09:55
PROVIDERS: PCP Family Medicine; Referring Provider Internal Medicine Cardiovascular Disease; Visit Provider Internal Medicine Cardiovascular Disease
DX: Z95.2 Presence of prosthetic heart valve (principal); Z79.01 Long term (current) use of anticoagulants
CPT/HCPCS: 36415; 85610

== ENCOUNTER → 2020-04-16 07:21 | Outpatient (CLI) | payer MEDICARE, SELFPAY ==
[2016-04-01 13:00] VITALS: BMI 50.8
[2020-04-15 11:03] VITALS: BMI 47.9
[2020-04-16 10:00] LABS: Absolute Lymphocyte Count 1.28 X10^3/uL (0.83-4.51); Absolute Neutrophil Count 4.2 X10^3/uL (2.0-7.7); Basophil# 0.04 X10^3/uL; Basophil% 0.6 % (0-1); Eosinophil# 0.19 X10^3/uL; Hematocrit 46.1 % (40-54); Hemoglobin 14.5 g/dL (13.0-16.5); Lymphocyte # 1.28 X10^3/ul (4.0); Lymphocyte % 20.5 % (19-41); Mean Corp Hgb Conc 31.5 g/dL (32-36); Mean Corpuscular Hgb 30.1 pg (27.0-32.0); Mean Corpuscular Volume 95.8 fL (80-94); Mean Platelet Vol. 9.8 fl (6.2-12.0); Monocyte# 0.48 X10^3/uL; Monocyte% 7.7 % (0-10); NRBC Flagged by Analyzer 0 % (0-5); Neutrophil # 4.24 X10^3/uL (2.7-7.7); Platelet Count 281 K/mm3 (150-450); RBC Distribution Width CV 12.9 % (11.6-14.6); RBC Distribution Width SD 45.4 fl (35.1-43.9); Red Blood Count 4.81 M/mm3 (4.6-6.2); White Blood Count 6.2 K/mm3 (4.4-11.0)
[2020-04-16 10:39] LABS: AST(SGOT) 30 U/L (15-37); Alanine Aminotransfer ALT/SGPT 43 U/L (16-61); Albumin, Serum 3.7 g/dL (3.2-5.0); Alkaline Phosphatase 60 U/L (45-117); Anion Gap 2 (5-15); BUN 14 mg/dL (7-18); BUN/Creat Ratio 19.2 RATIO (10-20); Bilirubin, Direct 0.17 mg/dL (0.00-0.30); Calcium,Total 8.9 mg/dL (8.5-10.1); Chloride 105 mmol/L (98-107); Cholesterol 123 mg/dL (200); Creatinine, Serum 0.73 mg/dL (0.70-1.30); EST Glomerular Filtration Rate 117 mL/min (>60); Est Glom Filt Rate - Afr Amer 141 mL/min (>60); Glucose 109 mg/dL (74-106); High Density Lipoprotein 42 mg/dL; Potassium 4.1 mmol/L (3.5-5.1); Protein, Total 7.7 g/dL (6.4-8.2); Sodium Level 138 mmol/L (136-145); Triglycerides 123 mg/dL; Very Low Density Lipoprotein 25 mg/dL (5-40)
== END ==
PROVIDERS: PCP Family Medicine; Referring Provider Internal Medicine Cardiovascular Disease; Visit Provider Internal Medicine Cardiovascular Disease
DX: I10 Essential (primary) hypertension (principal); E78.00 Pure hypercholesterolemia, unspecified; Z95.2 Presence of prosthetic heart valve; I35.2 Nonrheumatic aortic (valve) stenosis with insufficiency
CPT/HCPCS: 36415; 80048; 80061; 80076; 85025

== ENCOUNTER → 2020-06-20 12:53 | Outpatient (CLI) | payer MEDICARE, SELFPAY ==
[2016-04-01 13:00] VITALS: BMI 50.8
[2020-04-15 11:03] VITALS: BMI 47.9
--- NOTE | 2020-06-20 12:55 | ECHOCS_ITS ---
Reason For Study: Valve Replacement Eval Procedure This was a 2D Doppler, Color Flow transthoracic echocardiogram. The study was technically difficult. Contrast injection was performed. Exam performed in department. Left Ventricle Normal LV size. Left ventricular systolic function is normal. The estimated ejection fraction is 60 %. No regional wall motion abnormalities noted. Right Ventricle Normal RV size. Normal systolic function. Atria Normal left atrium. Normal right atrium. Mitral Valve Normal mitral valve. Aortic Valve Peak aortic valve gradient 24 mmHg. Mean aortic valve gradient 13 mmHg. Stable appearing mechanical aortic valve apparatus. Pulmonic Valve The pulmonic valve is not well visualized. Great Vessels Normal aortic root. The pulmonary artery is normal size. Normal inferior vena cava. Pericardium/Pleural No pericardial effusion. Medication 22 gauge I.V. with prn adaptor inserted into right arm. Diluted definity 5ml given slow IV push to enhance endocardial definition. MMode/2D Measurements & Calculations LVIDd: 5.3 cm IVSd: 1.5 cm LVOT diam: 2.3 cm LVIDs: 3.8 cm LVPWd: 1.5 cm LVOT area: 4.1 cm2 FS: 28.4 % LA dimension: 3.7 cm LAV(MOD-bp): 48.5 ml LVAd ap4: 39.9 cm2 LAV(MOD-bp) Indexed: 19.2 ml/m2 EDV(MOD-sp4): 158.4 ml LAV(MOD-sp2): 41.9 ml EDV(sp4-el): 164.7 ml LAV(MOD-sp4): 46.2 ml LVAs ap4: 23.9 cm2 ESV(MOD-sp4): 67.9 ml ESV(sp4-el): 65.0 ml EF(MOD-sp4): 57.2 % EF(sp4-el): 60.5 % SV(MOD-sp4): 90.6 ml SV(sp4-el): 99.7 ml LA A4 area: 15.8 cm2 Time Measurements MV dec time: 0.27 sec Doppler Measurements & Calculations MV E max john: 63.8 cm/sec Lat Peak E' John: 13.1 cm/sec Med Peak E' John: 11.7 cm/sec MV A max john: 84.2 cm/sec E/E' lat: 4.9 E/E' med: 5.4 MV E/A: 0.76 MV V2 max: 82.8 cm/sec MV P1/2t max john: 75.1 cm/sec Ao V2 max: 247.1 cm/sec MV max P.7 mmHg MV P1/2t: 62.6 msec Ao max P.4 mmHg MV V2 mean: 48.4 cm/sec Ao V2 mean: 164.3 cm/sec MV mean P.1 mmHg MV dec slope: 351.3 cm/sec2 Ao mean P.7 mmHg MV V2 VTI: 17.6 cm MVA(P1/2t): 3.5 cm2 Ao V2 VTI: 48.6 cm MVA(VTI): 3.7 cm2 LIUDMILA(I,D): 1.3 cm2 LIUDMILA(V,D): 1.4 cm2 LV V1 max: 83.2 cm/sec SV(LVOT): 65.3 ml PA V2 max: 160.8 cm/sec LV V1 max P.8 mmHg LV V1 mean P.3 mmHg LV V1 mean: 52.1 cm/sec LV V1 VTI: 16.1 cm Interpretation Summary Normal LV size. Left ventricular systolic function is normal. The estimated ejection fraction is 60 %. Mean aortic valve gradient 13 mmHg. Stable appearing mechanical aortic valve apparatus. Contrast injection was performed. Ordering Physician: Wilfrido Martin Referring Physician: Emmett Peoples Performed By: Stiven Garcia RCS
== END ==
PROVIDERS: PCP Family Medicine; Referring Provider Internal Medicine Cardiovascular Disease; Visit Provider Internal Medicine Cardiovascular Disease
DX: I35.2 Nonrheumatic aortic (valve) stenosis with insufficiency (principal)
CPT/HCPCS: 93306; Q9957; A4216; C8929

== ENCOUNTER → 2020-12-03 07:24 | Outpatient (CLI) | payer MEDICARE, SELFPAY ==
[2016-04-01 13:00] VITALS: BMI 50.8
[2020-08-06 06:29] VITALS: BMI 45.4
[2020-12-03 11:22] LABS: AST(SGOT) 29 U/L (15-37); Alanine Aminotransfer ALT/SGPT 43 U/L (16-61); Albumin, Serum 3.8 g/dL (3.2-5.0); Alkaline Phosphatase 64 U/L (45-117); Bilirubin, Direct 0.14 mg/dL (0.00-0.30); Cholesterol 123 mg/dL (200); Globulin 3.7 g/dL (2.2-4.2); High Density Lipoprotein 36 mg/dL; Protein, Total 7.5 g/dL (6.4-8.2); Triglycerides 148 mg/dL; Very Low Density Lipoprotein 30 mg/dL (5-40)
== END ==
PROVIDERS: PCP Family Medicine; Referring Provider Internal Medicine Cardiovascular Disease; Visit Provider Internal Medicine Cardiovascular Disease
DX: E78.00 Pure hypercholesterolemia, unspecified (principal)
CPT/HCPCS: 36415; 80061; 80076

== ENCOUNTER 2020-12-17 07:20 | Outpatient (RCR) | payer MEDICARE, SELFPAY ==
[2016-04-01 13:00] VITALS: BMI 50.8
[2020-04-15 11:03] VITALS: BMI 47.9
[2020-08-06 06:29] VITALS: BMI 45.4
[2020-12-02 15:41] LABS: International Normalized Ratio 2.3
[2020-12-10 10:27] LABS: International Normalized Ratio 2.4; Prothrombin Time (Protime)PT. 25.4 SECONDS (11.7-14.9)
[2020-12-17 10:24] LABS: International Normalized Ratio 3.5; Prothrombin Time (Protime)PT. 34.2 SECONDS (11.7-14.9)
== END 2020-12-17 18:00 | disposition home or self-care (01) ==
LOC: MTLAB 07:20
PROVIDERS: PCP Family Medicine; Referring Provider Internal Medicine Cardiovascular Disease; Visit Provider Internal Medicine Cardiovascular Disease
DX: Z95.2 Presence of prosthetic heart valve (principal); Z79.01 Long term (current) use of anticoagulants
CPT/HCPCS: 36415; 85610

== ENCOUNTER 2021-04-21 07:26 | Outpatient (RCR) | payer MEDICARE, SELFPAY ==
[2016-04-01 13:00] VITALS: BMI 50.8
[2020-08-06 06:29] VITALS: BMI 45.4
[2021-04-21 10:10] LABS: International Normalized Ratio 2.5
== END 2021-04-21 18:00 | disposition home or self-care (01) ==
LOC: MTLAB 07:26
PROVIDERS: PCP Family Medicine; Referring Provider Internal Medicine Cardiovascular Disease; Visit Provider Internal Medicine Cardiovascular Disease
DX: Z95.2 Presence of prosthetic heart valve (principal); Z79.01 Long term (current) use of anticoagulants
CPT/HCPCS: 36415; 85610

== ENCOUNTER → 2021-07-03 17:32 | Outpatient (CLI) | payer MEDICARE, SELFPAY ==
[2016-04-01 13:00] VITALS: BMI 50.8
--- NOTE | 2021-07-03 18:15 | MRI_ITS ---
STUDY: MRI LUMBAR SPINE WITHOUT CONTRAST REASON FOR EXAM: Male, 60 years old. BACK AND LEG PAIN TECHNIQUE: Standardized fat and water weighted pulse sequences were obtained in the sagittal and axial planes. was administered for the contrast portion of the examination. COMPARISON: 20 Jan 2018 FINDINGS: T11-T12: Degenerated endplates decreased disc height, hydration and degenerative bulge morphology. Normal bilateral facet joints. Normal central canal and bilateral lateral recesses. Normal bilateral intervertebral neural foramina. T12-L1: Degenerated endplates with acute reactive intravertebral herniation and subchondral degeneration. Decreased disc height, hydration and degenerative bulge morphology. Normal bilateral facet joints. Normal central canal and bilateral lateral recesses. Normal bilateral intervertebral neural foramina. Normal lumbar lordosis. There is no substantial scoliosis. Conus terminates at L1. Cauda equina is normal. L1-2: Degenerated endplates. Normal disc height, hydration and degenerative morphology. Normal bilateral facet joints. Normal central canal and bilateral lateral recesses. Minimal bilateral intervertebral neural foramina. L2-3: Degenerative endplates. Normal disc height, hydration and degenerative morphology. Normal bilateral facet joints. Normal central canal and bilateral lateral recesses. Mild bilateral intervertebral neural foramina. L3-4: Degenerated endplates. Normal disc height, hydration and degenerative morphology. Normal bilateral facet joints. Normal central canal and bilateral lateral recesses. Mild bilateral intervertebral neural foramina. L4-5: Degenerated endplates. Normal disc height, hydration and degenerative morphology. Normal bilateral facet joints. Normal central canal and bilateral lateral recesses. Mild bilateral intervertebral neural foramina. L5-S1: Normal endplates. Normal disc height, hydration and morphology. Normal bilateral facet joints. Normal central canal and bilateral lateral recesses. Normal bilateral intervertebral neural foramina. Normal visualized sacral ala. Normal visualized paraspinous soft tissue structures. MRI/Spine Lumbar (Routine) IMPRESSION: 1. Acute intervertebral herniations/endplate degeneration of superior L1. 2. Otherwise stable spondylosis is 2018. 3. Patent canal, no neural compression. Electronically Signed: Chi Young MD at 19:11 EDT Tel , Service support ,
== END ==
PROVIDERS: PCP Family Medicine; Visit Provider Anesthesiology Pain Medicine
DX: M54.9 Dorsalgia, unspecified (principal); M79.606 Pain in leg, unspecified
CPT/HCPCS: 72148

== ENCOUNTER → 2021-08-06 07:30 | Outpatient (CLI) | payer MEDICARE, SELFPAY ==
[2016-04-01 13:00] VITALS: BMI 50.8
== END ==
PROVIDERS: PCP Family Medicine; Visit Provider Internal Medicine Critical Care Medicine
DX: G47.33 Obstructive sleep apnea (adult) (pediatric) (principal)
CPT/HCPCS: 98960; G0463

== ENCOUNTER 2021-08-31 07:27 | Outpatient (RCR) | payer MEDICARE, SELFPAY ==
[2016-04-01 13:00] VITALS: BMI 50.8
[2021-05-20 01:43] VITALS: BMI 45.4
[2021-08-26 10:38] LABS: International Normalized Ratio 1.7; Prothrombin Time (Protime)PT. 19.4 SECONDS (11.7-14.9)
[2021-08-31 10:22] LABS: International Normalized Ratio 2.4; Prothrombin Time (Protime)PT. 25.4 SECONDS (11.7-14.9)
== END 2021-09-19 18:00 | disposition home or self-care (01) ==
LOC: MTLAB 07:27
PROVIDERS: PCP Family Medicine; Referring Provider Internal Medicine Cardiovascular Disease; Visit Provider Internal Medicine Cardiovascular Disease
DX: Z79.01 Long term (current) use of anticoagulants (principal); Z95.2 Presence of prosthetic heart valve
CPT/HCPCS: 36415; 82533; 85610

== ENCOUNTER → 2021-09-16 15:19 | Outpatient (CLI) | payer MEDICARE, SELFPAY ==
[2016-04-01 13:00] VITALS: BMI 50.8
[2021-09-16 16:04] LABS: Amphetamine Urine VISTA NEGATIVE (<1000 ng/mL); Barbiturate Urine VISTA NEGATIVE (< 200 ng/mL); Benzodiazepine Urine VISTA NEGATIVE (< 200 ng/mL); Cocaine Urine VISTA NEGATIVE (< 300 ng/mL); Ecstacy Urine VISTA NEGATIVE (< 500 ng/mL); Methadone Urine VISTA NEGATIVE (< 300 ng/mL); PCP Urine VISTA NEGATIVE (< 25 ng/mL); THC Urine VISTA NEGATIVE (< 50 ng/mL); Vista UDS pH Range 6
== END ==
PROVIDERS: PCP Family Medicine; Visit Provider Anesthesiology Pain Medicine
DX: F11.20 Opioid dependence, uncomplicated (principal)
CPT/HCPCS: 80307

== ENCOUNTER 2022-04-21 07:17 | Outpatient (RCR) | payer MEDICARE, SELFPAY ==
[2016-04-01 13:00] VITALS: BMI 50.8
[2021-09-20 03:56] VITALS: BMI 45.4
[2022-04-21 10:20] LABS: Prothrombin Time (Protime)PT. 22.3 SECONDS (11.7-14.9)
== END 2022-04-21 18:00 | disposition home or self-care (01) ==
LOC: MTLAB 07:17
PROVIDERS: PCP Family Medicine; Referring Provider Internal Medicine Cardiovascular Disease; Visit Provider Internal Medicine Cardiovascular Disease
DX: Z79.01 Long term (current) use of anticoagulants (principal); Z95.2 Presence of prosthetic heart valve
CPT/HCPCS: 36415; 85610

== ENCOUNTER → 2022-05-04 | Outpatient (CLI) | payer MEDICARE, SELFPAY ==
[2016-04-01 13:00] VITALS: BMI 50.8
== END | disposition home or self-care (01) ==
LOC: SL 07:55
PROVIDERS: PCP Family Medicine; Referring Provider Nurse Practitioner Acute Care; Visit Provider Nurse Practitioner Acute Care
DX: Z46.89 Encounter for fitting and adjustment of other specified devices (principal)

== ENCOUNTER 2022-09-07 16:17 | Outpatient (RCR) | payer MEDICARE, SELFPAY ==
[2016-04-01 13:00] VITALS: BMI 50.8
[2022-05-20 01:39] VITALS: BMI 45.4
[2022-09-07 18:04] LABS: International Normalized Ratio 2.7
== END 2022-09-07 18:00 | disposition home or self-care (01) ==
LOC: MTLAB 16:17
PROVIDERS: Physician Assistant Medical; PCP Family Medicine; Referring Provider Internal Medicine Cardiovascular Disease; Visit Provider Internal Medicine Cardiovascular Disease
DX: Z79.01 Long term (current) use of anticoagulants (principal); Z95.2 Presence of prosthetic heart valve
CPT/HCPCS: 36415; 85610

== ENCOUNTER → 2022-10-21 | Outpatient (CLI) | payer MEDICARE, SELFPAY ==
[2016-04-01 13:00] VITALS: BMI 50.8
== END | disposition home or self-care (01) ==
LOC: SL 11:36
PROVIDERS: PCP Family Medicine; Referring Provider Internal Medicine Critical Care Medicine; Visit Provider Internal Medicine Critical Care Medicine
DX: G47.33 Obstructive sleep apnea (adult) (pediatric) (principal)
CPT/HCPCS: 98960; G0463

== ENCOUNTER 2023-03-09 07:18 | Outpatient (RCR) | payer MEDICARE, SELFPAY ==
[2016-04-01 13:00] VITALS: BMI 50.8
[2022-09-19 06:48] VITALS: BMI 45.4
[2023-03-09 10:50] LABS: International Normalized Ratio 2.9; Prothrombin Time (Protime)PT. 30.8 SECONDS (11.7-14.9)
== END 2023-03-09 18:00 | disposition home or self-care (01) ==
LOC: MTLAB 07:18
PROVIDERS: Internal Medicine Cardiovascular Disease; PCP Family Medicine; Referring Provider Nurse Practitioner Family; Visit Provider Nurse Practitioner Family
DX: Z79.01 Long term (current) use of anticoagulants (principal); Z95.2 Presence of prosthetic heart valve
CPT/HCPCS: 36415; 85610

== ENCOUNTER → 2024-06-04 | Outpatient (CLI) | payer MEDICARE, SELFPAY ==
[2016-04-01 13:00] VITALS: BMI 50.8
[2024-06-04 11:02] LABS: Follicle Stimulating Hormone 14.4 mIU/mL; T4 Free Direct 0.96 ng/dL (0.76-1.46)
[2024-06-04 13:36] LABS: Anion Gap 9 (5-15); BUN 15 mg/dL (7-18); BUN/Creat Ratio 19.2 RATIO (10-20); Calcium,Total 9.9 mg/dL (8.5-10.1); Chloride 105 mmol/L (98-107); Creatinine, Serum 0.78 mg/dL (0.70-1.30); EST Glomerular Filtration Rate 106 mL/min (>60); Est Glom Filt Rate - Afr Amer 129 mL/min (>60); Glucose 115 mg/dL (74-106); Potassium 4.1 mmol/L (3.5-5.1); Sodium Level 140 mmol/L (136-145)
[2024-06-05 04:07] LABS: PROLACTIN 15.5 ng/mL (3.6-25.2)
== END | disposition home or self-care (01) ==
PROVIDERS: PCP Family Medicine
DX: E22.1 Hyperprolactinemia (principal); D49.7 Neoplasm of unspecified behavior of endocrine glands and other parts of nervous system; E29.1 Testicular hypofunction; E55.9 Vitamin D deficiency, unspecified; R79.89 Other specified abnormal findings of blood chemistry
CPT/HCPCS: 36415; 80048; 83001; 84146; 84403; 84439

== ENCOUNTER 2024-06-18 07:36 | Outpatient (RCR) | payer MEDICARE, SELFPAY ==
[2016-04-01 13:00] VITALS: BMI 50.8
[2024-05-29 10:03] LABS: International Normalized Ratio 2.2; Prothrombin Time (Protime)PT. 24.3 SECONDS (11.7-14.9)
[2024-06-11 10:34] LABS: International Normalized Ratio 6.7; Prothrombin Time (Protime)PT. 57.8 SECONDS (11.7-14.9)
[2024-06-13 10:22] LABS: International Normalized Ratio 2.2; Prothrombin Time (Protime)PT. 24.6 SECONDS (11.7-14.9)
[2024-06-18 11:27] LABS: International Normalized Ratio 2.9; Prothrombin Time (Protime)PT. 30.1 SECONDS (11.7-14.9)
== END 2024-06-18 18:00 | disposition home or self-care (01) ==
LOC: MTLAB 07:36
PROVIDERS: PCP Family Medicine; Referring Provider Internal Medicine Cardiovascular Disease; Visit Provider Internal Medicine Cardiovascular Disease
DX: Z79.01 Long term (current) use of anticoagulants (principal); Z95.2 Presence of prosthetic heart valve
CPT/HCPCS: 36415; 85610

== ENCOUNTER 2024-07-09 07:39 | Outpatient (RCR) | payer MEDICARE, SELFPAY ==
[2016-04-01 13:00] VITALS: BMI 50.8
[2024-07-09 10:29] LABS: International Normalized Ratio 3.7; Prothrombin Time (Protime)PT. 36.1 SECONDS (11.7-14.9)
== END 2024-07-09 18:00 | disposition home or self-care (01) ==
LOC: MTLAB 07:39
PROVIDERS: PCP Family Medicine; Referring Provider Internal Medicine Cardiovascular Disease; Visit Provider Internal Medicine Cardiovascular Disease
DX: Z95.2 Presence of prosthetic heart valve (principal); Z79.01 Long term (current) use of anticoagulants
CPT/HCPCS: 36415; 85610

== ENCOUNTER 2024-07-23 07:26 | Outpatient (RCR) | payer MEDICARE, SELFPAY ==
[2016-04-01 13:00] VITALS: BMI 50.8
== END 2024-08-18 18:00 | disposition home or self-care (01) ==
LOC: MTLAB 07:26
PROVIDERS: PCP Family Medicine; Referring Provider Internal Medicine Cardiovascular Disease; Visit Provider Internal Medicine Cardiovascular Disease
DX: Z95.2 Presence of prosthetic heart valve (principal); Z79.01 Long term (current) use of anticoagulants
CPT/HCPCS: 36415; 85610

== ENCOUNTER → 2025-02-14 | Outpatient (CLI) | payer MEDICARE, SELFPAY ==
[2016-04-01 13:00] VITALS: BMI 50.8
--- NOTE | 2025-02-14 14:14 | MRI_ITS ---
PROCEDURE: BRAIN W/WO CONTRAST 02/14/2025 REASON FOR EXAM: ATTN [place] [place] TECHNIQUE: Routine brain MRI without and with intravenous contrast. Multiplanar and multisequence images were obtained. CONTRAST: 27 cc of Clariscan COMPARISON: 11/02/2022 FINDINGS: Normal craniovertebral junction. No abnormal hydrocephalus. There is a punctate area of diffusion restriction in the right frontal white matter just above the right lateral ventricle. This could represent a small acute lacunar type infarction. No pathologic flow voids. No hydrocephalus. Orbits are symmetric. Mild periventricular chronic microvascular change. Scattered ethmoid mucosal thickening. There is T2 bright fluid signal extending from the inferior aspect of the sella into the sphenoid compartment. On postcontrast images this is Iso to hypointense on T1 weighted sequences. On coronal T1 weighted images, this is hypointense. I do not believe this demonstrates a significant degree of enhancement after contrast administration. The cavernous carotid arteries are maintained. There is normal enhancing pituitary tissue on the left. Infundibulum and chiasm are maintained. MRI/Brain W/WO Contrast IMPRESSION: On coronal images without contrast, the isointense T1 signal which is in the sp henoid compartment extends and appears to extend around the right cavernous carotid artery. On postcontrast T1 weighted images and delayed appearance, there is moderate enhancement suspected. In the axial plane, at a credit resolution representative level this donal ures 26 x 23 mm with a height of 24 mm. On the prior study, a height of 23 mm is similar similar transverse measurements. 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 I do not appreciate a significant degree of enlargement compared to the prior study. Reading [facility]
== END | disposition home or self-care (01) ==
PROVIDERS: PCP Family Medicine; Referring Provider Internal Medicine Endocrinology, Diabetes & Metabolism; Visit Provider Internal Medicine Endocrinology, Diabetes & Metabolism
DX: D35.2 Benign neoplasm of pituitary gland (principal)
CPT/HCPCS: 70553; A9575

== ENCOUNTER → 2025-07-23 | Outpatient (CLI) | payer MEDICARE, SELFPAY ==
[2016-04-01 13:00] VITALS: BMI 50.8
[2025-07-23 10:10] LABS: AST(SGOT) 40 U/L (<=37); Alanine Aminotransfer ALT/SGPT 36 U/L (<=46); Albumin, Serum 4.1 g/dL (3.4-4.8); Alkaline Phosphatase 62 U/L (40-129); Anion Gap 10 (5-15); BUN 19 mg/dL (4-19); BUN/Creat Ratio 28.8 RATIO (10-20); CORTISOL AM 8.44 ug/dL (6.02-18.40); Calcium,Total 9.5 mg/dL (7.6-11.0); Carbon Dioxide 24.6 mmol/L (21.0-32.0); Chloride 105 mmol/L (98-108); Follicle Stimulating Hormone 19.8 mIU/mL; Globulin 2.8 g/dL (2.2-4.2); Glucose 121 mg/dL (70-99); Potassium 4.2 mmol/L (3.3-5.1)
[2025-07-26 13:09] LABS: PROLACTIN 11.5 ng/mL (3.6-25.2); Testosterone, % Free 2.51 % (1.50-4.20); Testosterone, Free 7.18 ng/dL (5.00-21.00)
== END | disposition home or self-care (01) ==
PROVIDERS: PCP Family Medicine; Referring Provider Internal Medicine Endocrinology, Diabetes & Metabolism; Visit Provider Internal Medicine Endocrinology, Diabetes & Metabolism
DX: D35.2 Benign neoplasm of pituitary gland (principal); N64.3 Galactorrhea not associated with childbirth
CPT/HCPCS: 36415; 80053; 82024; 82533; 83001; 83002; 84146; 84305; 84402; 84403; 84439

== ENCOUNTER 2025-08-16 07:27 | Outpatient (RCR) | payer MEDICARE, SELFPAY ==
[2016-04-01 13:00] VITALS: BMI 50.8
[2025-08-16 10:07] LABS: Prothrombin Time (Protime)PT. 31.9 SECONDS (11.7-14.9)
[2025-08-16 10:18] LABS: AST(SGOT) 39 U/L (<=37); Alanine Aminotransfer ALT/SGPT 31 U/L (<=46); Albumin, Serum 4.3 g/dL (3.4-4.8); Alkaline Phosphatase 56 U/L (40-129); Bilirubin, Direct 0.25 mg/dL (0.00-0.30); Globulin 3.0 g/dL (2.2-4.2)
[2025-08-16 12:38] LABS: Cholesterol 117 mg/dL (<=200); Low Density Lipoprotein Calc. 59 mg/dL; Triglycerides 117 mg/dL; Very Low Density Lipoprotein 23 mg/dL (5-40); cholesterol:hdl ratio screen 3.17
== END 2025-08-17 18:00 | disposition home or self-care (01) ==
LOC: MTLAB 07:27
PROVIDERS: Nurse Practitioner Gerontology; PCP Family Medicine; Referring Provider Internal Medicine Cardiovascular Disease; Visit Provider Internal Medicine Cardiovascular Disease
DX: E78.00 Pure hypercholesterolemia, unspecified (principal); Z98.890 Other specified postprocedural states
CPT/HCPCS: 36415; 80061; 80076; 85610

== ENCOUNTER → 2025-09-04 | Outpatient (CLI) | payer MEDICARE, SELFPAY ==
[2016-04-01 13:00] VITALS: BMI 50.8
--- NOTE | 2025-09-04 07:53 | ECHOCS_ITS ---
Reason For Study : VALVE REPLACEMENT-EVAL Procedure This was a 2D Doppler, Color Flow transthoracic echocardiogram. The study was technically difficult. Contrast injection was performed. Exam performed in department. Left Ventricle Normal LV size. Left ventricular systolic function is normal. The left ventricular ejection fraction is 60 %. No regional wall motion abnormalities noted. Right Ventricle Normal RV size. Normal systolic function. Atria Normal left atrium. Normal right atrium. Mitral Valve Normal mitral valve. Tricuspid Valve Normal tricuspid valve. Aortic Valve Peak aortic valve gradient 20.3 mmHg. Mean aortic valve gradient 11.4 mmHg. Mild aortic stenosis. Stable appearing mechanical aortic valve apparatus. Pulmonic Valve Normal pulmonic valve. Great Vessels Moderately dilated aortic root. The pulmonary artery is normal size. Inferior vena cava collapse with respiration. Pericardium/Pleural No pericardial effusion. Medication 22 gauge I.V. with prn adaptor inserted into left arm. Diluted definity 1.5ml given slow IV push to enhance endocardial definition. MMode/2D Measurements & Calculations LVIDd: 5.6 cm IVSd: 0.81 cm LVOT diam: 2.0 cm LVIDs: 3.5 cm LVPWd: 0.95 cm RVDd: 3.5 cm FS: 37.0 % LVOT area: 3.3 cm2 Ao root diam: 4.6 cm asc Aorta Diam: 4.5 cm LAV(MOD- bp): 59.3 ml LAV(MOD- bp) Indexed: 28.9 ml/m2 LAV(MOD- sp2): 57.5 ml LAV(MOD- sp4): 66.2 ml LVAd ap4: 29.7 cm2 LVAd ap2: 25.9 cm2 EDV(MOD- bp): 89.9 ml LVLd ap4: 8.1 cm LVLd ap2: 6.9 cm ESV(MOD- bp): 37.9 ml EDV(MOD-sp4): 87.9 ml EDV(MOD-sp2): 78.4 ml EF(MOD- bp): 57.9 % EDV(sp4-el): 92.5 ml EDV(sp2-el): 82.3 ml LVAs ap4: 17.7 cm2 LVAs ap2: 15.1 cm2 LVLs ap4: 6.7 cm LVLs ap2: 6.1 cm ESV(MOD-sp4): 40.6 ml ESV(MOD-sp2): 32.1 ml ESV(sp4-el): 39.3 ml ESV(sp2-el): 31.5 ml EF(MOD-sp4): 53.8 % EF(MOD-sp2): 59.0 % EF(sp4-el): 57.5 % SV(MOD-sp4): 47.3 ml SV(MOD-sp2): 46.3 ml SV(sp4- el): 53.3 ml SI(MOD-sp4): 23.0 ml/m2 SI(MOD-sp2): 22.6 ml/m2 LA dimension(2D): 4.0 cm LA A4 area: 20.5 cm2 RA A4 area: 14.3 cm2 Time Measurements MV dec time: 0.21 sec Doppler Measurements & Calculations MV E max john: 99.6 cm/sec Lat Peak E' John: 11.0 cm/sec Med Peak E' John: 7.3 cm/sec MV A max john: 75.1 cm/sec E/E' lat: 9.0 E/E' med: 13.7 MV E/A: 1.3 MV V2 max: 92.5 cm/sec MV dec slope: 471.9 cm/sec2 Ao V2 max: 225.3 cm/sec MV max P.5 mmHg Ao max P.3 mmHg MV V2 mean: 58.6 cm/sec Ao V2 mean: 159.5 cm/sec MV mean P.5 mmHg Ao mean P.4 mmHg MV V2 VTI: 23.4 cm Ao V2 VTI: 43.8 cm MVA(VTI): 2.6 cm2 AV (velocity ratio): 0.43 LIUDMILA(I,D): 1.4 cm2 LIUDMILA(V,D): 1.1 cm2 LV V1 max: 75.7 cm/sec SV(LVOT): 61.5 ml PA V2 max: 117.4 cm/sec LV V1 max P.3 mmHg LV V1 mean P.3 mmHg LV V1 mean: 55.5 cm/sec LV V1 VTI: 18.9 cm ECHO/Echo Complete W/ Contrast Interpretation Summary Normal LV size. The left ventricular ejection fraction is 60 %. Left ventricular systolic function is normal. Stable appearing mechanical aortic valve apparatus. Mean aortic valve gradient 11.4 mmHg. Contrast injection was performed. Ordering Physician: Suni Chacon Referring Physician: Renzo Dunham Performed By: Kemal Hays RDCS
== END | disposition home or self-care (01) ==
PROVIDERS: PCP Emergency Medicine; Referring Provider Nurse Practitioner Gerontology; Visit Provider Nurse Practitioner Gerontology
DX: Z98.890 Other specified postprocedural states (principal)
CPT/HCPCS: 93306; Q9957; A4216; C8929